=== PATIENT | female | born 1950 | race African-American/Black ===

== ENCOUNTER 2020-01-05 05:08 | Day surgery (SDC) | payer OTHER ==
[2020-01-02 11:52] VITALS: BMI 28.5
[2020-01-05 12:16] VITALS: TEMP 96.8
[2020-01-05 13:13] VITALS: BP 144/70; PULSE 68
--- NOTE | 2020-01-08 17:01 | PATH ---
Surgical Pathology Report Patient Name: HECTOR MARIEE [facility]. Rec. #: [id number] /Age/Gender: 1950 (Age: 69) / F Account: [id number] Location: U-ENDOSCOPY Taken: 01/05/2020 Received: 01/05/2020 Reported: 01/08/2020 Physicians: Roderick Young M.D. Specimen(s) Received A: BX ANTRUM LESSER CURVATURE B: BX ANTRUM GREATER CURVATURE C: BX ANGULARIS D: BX BODY LESSER CURVATURE E: BX BODY GREATER CURVATURE Clinical History History of gastric intestinal metaplasia Postoperative diagnosis: Gastritis Final Diagnosis A. ANTRUM LESSER CURVATURE, BIOPSY: GASTRIC MUCOSA WITH CHRONIC GASTRITIS AND INTESTINAL METAPLASIA. IMMUNOSTAIN FOR H. PYLORI IS NEGATIVE. NEGATIVE FOR DYSPLASIA. B. ANTRUM GREATER CURVATURE, BIOPSY: GASTRIC MUCOSA WITH CHRONIC GASTRITIS. IMMUNOSTAIN FOR H. PYLORI IS NEGATIVE. NEGATIVE FOR INTESTINAL METAPLASIA. C. ANGULARIS, BIOPSY: GASTRIC MUCOSA WITH CHRONIC GASTRITIS. IMMUNOSTAIN FOR H. PYLORI IS NEGATIVE. NEGATIVE FOR INTESTINAL METAPLASIA. D. BODY LESSER CURVATURE, BIOPSY: GASTRIC MUCOSA WITH CHRONIC GASTRITIS. IMMUNOSTAIN FOR H. PYLORI IS NEGATIVE. NEGATIVE FOR INTESTINAL METAPLASIA. E. BODY GREATER CURVATURE, BIOPSY: GASTRIC MUCOSA WITH CHRONIC GASTRITIS. IMMUNOSTAIN FOR H. PYLORI IS NEGATIVE. NEGATIVE FOR INTESTINAL METAPLASIA. Electronically Signed Eliseo Marrero M.D. Gross Description A. Received in formalin, labeled "biopsy antrum lesser curvature" are 2 rolle, irregular portions of soft tissue averaging 0.4 cm. in greatest dimension. The specimens are submitted in toto in one cassette. B. Received in formalin, labeled "biopsy antrum greater curvature" are 3 rolle, irregular portions of soft tissue ranging from 0.4-0.5 cm. in greatest dimension. The specimens are submitted in toto in one cassette. C. Received in formalin, labeled "biopsy angularis" are 2 rolle, irregular portions of soft tissue measuring 0.1 and 0.3 cm. in greatest dimension. The specimens are submitted in toto in one cassette. D. Received in formalin, labeled "biopsy body lesser curvature" is a rolle, irregular portion of soft tissue measuring 0.3 cm. in greatest dimension. The specimen is submitted in toto in one cassette. E. Received in formalin, labeled "biopsy body greater curvature" are 2 rolle, irregular portions of soft tissue measuring 0.2 and 0.6 cm. in greatest dimension. The specimens are submitted in toto in one cassette. 01/05/2020 [facility]01/05/2020
== END 2020-01-05 13:18 | disposition home or self-care (01) ==
LOC: JASU-ENDO 05:08
PROVIDERS: ATTEND Internal Medicine Gastroenterology
PROC: 0DB68ZX Excision of Stomach, Via Natural or Artificial Opening Endoscopic, Diagnostic (ICD-10-PCS; principal; 2020-01-05 12:00)
DX: K29.50 Unspecified chronic gastritis without bleeding (principal); K31.9 Disease of stomach and duodenum, unspecified; I10 Essential (primary) hypertension
CPT/HCPCS: 88305-TC; 88342-TC